=== PATIENT | female | born 1955 | race Caucasian/White ===

== ENCOUNTER → 2017-03-22 | Outpatient (CLI) | payer OTHER ==
--- NOTE | 2017-03-22 21:22 | Diagnostic Imaging Report ---
EXAMINATION: Supine view of the abdomen. INDICATION: Right kidney stone. FINDINGS: Right flank calcification measuring 4 mm is seen without change from 02/28/2016. No definitive other urinary tract stone is identified. IMPRESSION: 4 mm right flank calcification is probably a kidney stone without change from the previous exam. Dictated by: Dictated on workstation # [id number]
== END ==
LOC: RAD 11:30
PROVIDERS: ATTEND Urology
DX: N20.0 Calculus of kidney (principal)
CPT/HCPCS: 74000

== ENCOUNTER → 2018-01-14 | Outpatient (CLI) | payer OTHER ==
--- NOTE | 2018-01-17 18:00 | Diagnostic Imaging Report ---
INDICATION: Screening. The current study was also evaluated with a Computer Aided Detection (CAD) system. 3D tomosynthesis was also performed and reviewed. COMPARISON: Comparison made with prior examinations from 11/08/2015 back through 02/16/2011. FINDINGS: The fibroglandular tissue is heterogeneously dense bilaterally. There is a surgical clip in the right breast. There are a few benign-type calcifications. There is no new dominant mass or spiculated lesion. Skin, nipples, and axillae are unremarkable. IMPRESSION: Benign. ACR BI-RADS Category 2: Benign findings. Result letter will be mailed to the patient. Note: At least 10% of breast cancer is not imaged by mammography. Dictated by: Dictated on workstation # [id number]
== END ==
LOC: RAD 09:18
PROVIDERS: ATTEND Obstetrics & Gynecology
DX: Z12.31 Encounter for screening mammogram for malignant neoplasm of breast (principal)
CPT/HCPCS: 77067

== ENCOUNTER → 2018-03-14 | Outpatient (CLI) | payer OTHER ==
--- NOTE | 2018-03-14 15:54 | Diagnostic Imaging Report ---
INDICATION: Nephrolithiasis. KUB 3:48 PM. FINDINGS: There is a 3 mm calculus projecting over the inferior pole of the right kidney. There is cartilaginous calcification projecting over the left kidney from the ribs. Bowel gas pattern is normal. IMPRESSION: Small calculus inferior pole right kidney. This is unchanged from prior study done on 03/22/2017. Dictated by: Dictated on workstation # [id number]
== END ==
LOC: RAD 15:12
PROVIDERS: ATTEND Urology
DX: N20.0 Calculus of kidney (principal)
CPT/HCPCS: 74018

== ENCOUNTER 2019-01-17 08:45 | Outpatient (CLI) | payer OTHER ==
[~2019-01-17] VITALS: Ht 157.5 cm; Wt 46.8 kg
[2019-01-17] MEDS ORDERED: CHOL500044 PO (09:22)
[2019-01-17] MEDS ORDERED: FERR240T15 PO (09:22)
[2019-01-17] MEDS ORDERED: ESTR10TA9 VG (09:22)
[2019-01-17] MEDS ORDERED: MV-M1TAB57 PO (09:22)
[2019-01-17] MEDS ORDERED: CYCL10TA9 PO (09:22)
[2019-01-17] MEDS ORDERED: ASPI-789 PO (09:22)
[2019-01-17] MEDS ORDERED: AMIT25TA9 PO (09:22)
[2019-01-17] MEDS ORDERED: GLUC100016 PO (09:22)
[2019-01-17] MEDS ORDERED: MELO15TA39 PO (09:22)
[2019-01-20] MEDS ORDERED: OXYC-529 PO (14:31)
[2019-01-20] MEDS ORDERED: ACET-2267 PO (14:31)
== END 2019-01-17 09:25 | disposition home or self-care (01) ==
LOC: PREOP 08:45
PROVIDERS: ATTEND Obstetrics & Gynecology
DX: Z01.818 Encounter for other preprocedural examination (principal)

== ENCOUNTER 2019-01-20 11:25 | Day surgery (SDC) | payer OTHER ==
[2019-01-20] VITALS (11 sets, daily range): BP systolic 32–151; BP diastolic 57–82
[~2019-01-20] VITALS: Ht 157.5 cm; Wt 46.8 kg
[~2019-01-20 11:25] MED LIST: AMIT25TA9 PO; ASPI-789 PO; CHOL500044 PO; CYCL10TA9 PO; ESTR10TA9 VG; FERR240T15 PO; GLUC100016 PO; MELO15TA39 PO; MV-M1TAB57 PO
[2019-01-20] MEDS ORDERED: LACTATED RINGERS 1,000 ML IV PRN (11:34)
[2019-01-20] MEDS ORDERED: CATHETER FLUSH 10 ML SYR IV PRN (11:45)
[2019-01-20] MEDS ORDERED: metroNIDAZOLE 500MG/100ML IVPB 100 ML IV ONE (11:45)
[2019-01-20] MEDS ORDERED: ceFAZolin INJECTION 1,000 MG in WATER (STERILE) FOR INJECTION 10 ML IV ONE (11:45)
[2019-01-20] MEDS ORDERED: LIDOCAINE PF 2% 5 ML (XYLOCAINE) VIAL ONE (12:37)
[2019-01-20] MEDS ORDERED: DEXAMETHASONE 10 MG/ML (DECADRON) 1 ML VIAL ONE (12:37)
[2019-01-20] MEDS ORDERED: proPOfol 200 MG/20 ML (DIPRIVAN) VIAL IV ONE (12:37)
[2019-01-20] MEDS ORDERED: ONDANSETRON 4 MG/2 ML (SDV) Z0FRAN ONE (12:37)
[2019-01-20] MEDS ORDERED: fentaNYL INJECTION 100 MCG/2 ML AMP ONE (12:38)
[2019-01-20] MEDS ORDERED: MIDAZOLAM 2 MG/2 ML (VERSED) VIAL ONE (12:38)
--- NOTE | 2019-01-20 13:22 | Progress Note-Pre Operative ---
Pre-Operative Progress Note H&P Reviewed The H&P was reviewed, patient examined and no changes noted. Date Seen by Provider: Jan 20, 2019 Time Seen by Provider: 13:00 Date H&P Reviewed: Jan 20, 2019 Time H&P Reviewed: 12:45 Pre-Operative Diagnosis: postmenopausal bleeding, hematometra, cervical stenosis EMANUEL RODRIGUEZ DO Jan 20, 2019 13:22
[2019-01-20] MEDS ORDERED: KETOROLAC 30 MG/ML VIAL ONE (13:37)
[2019-01-20] MEDS ORDERED: SEVOFLURANE (ULTANE) 15 ML INHAL SOLN ONE ×2 (13:37→14:10)
[2019-01-20] MEDS ORDERED: BUPIVACAINE 0.5% 30 ML (SENSORCAINE) VIAL ONE (13:38)
[2019-01-20] MEDS ORDERED: morphine INJ 10 MG/ML 1ML (SYR OR VIAL) IVP ONE (14:15)
[2019-01-20] MEDS ORDERED: KETOROLAC 15 MG/ML VIAL IVP ONE (14:15)
[2019-01-20] MEDS ORDERED: MEPERIDINE (DEMEROL) INJ 50 MG/ML IVP ONE (14:15)
[2019-01-20] MEDS ORDERED: ONDANSETRON 4 MG/2 ML (SDV) Z0FRAN IVP PRN (14:15)
--- NOTE | 2019-01-20 14:28 | Operative Report ---
Operative Report Date of Procedure/Surgery Jan 20, 2019 Surgeon (s) EMANUEL RODRIGUEZ DO Gunner'S Mate G (s): NA Post-Operative Diagnosis Atrophic endometrium, cervical stenosis postmenopausal bleeding with hematometria Procedure Performed Hysteroscopy, dilation and curettage Description of Procedure Anesthesia Type: General Estimated blood loss (mL): minimal Specimen(s) collected/removed endometrial curettings Description of the Procedure With informed consent, the patient was taken to the operating room where general anesthetic was found to be adequate. Incidentally, she states she had stopped bleeding from the procedure done in the office 2+ weeks ago. She was prepped and draped in the usual sterile fashion in the dorsal lithotomy position. She has a small vaginal introitus and a normal size I valve speculum was placed. This was determined to be too large to see the small cervix I was able to obtain a small rectal speculum and this allowed me to adequately visualize the cervix without compromising visualization. I placed this and then grasped the cervix with a tenaculum. The cervix was noted to be stopped stenotic and I could not place a dilator. Instead I took an 11 blade and made a stab through the cervical os externally and there was some cervical mucus returned insuring that the cervical os was entered. At this point I attempted to place a Dealno dilator and was not able to pass this through the internal os. I then gently passed the 11 blade through the os. At this point I took a small lacrimal dilator and was able to pass this through the internal cervical os. I then placed the slightly larger diameter lacrimal dilators. I then was able to hydrodilate with the hysteroscope. Gently passing this through the external and then the internal os. There were some possible cribriform type adhesions in the endometrium noted. But that's tissue was very atrophic in appearance. There was no obvious mass noted. I then removed the hysteroscope and did a gentle curet with the 00 curette. I sent this tissue for pathology. I followed up with a hysteroscope and revealed no perforation and no abnormality except for the atrophic endometrium. At this point the tenaculum was removed from the cervix and the instruments were removed from the vagina. The patient was awakened and taken to the recovery room in a stable condition. Sponge, instrument and laparotomy sponges were correct 2. She was given Ancef preoperatively for surgical prophylaxis and 15 mg of Toradol postoperative pain. Findings of the Procedure stenotic cervix atrophic endometrium Allergies and Home Medications Allergies Coded Allergies: No Known Drug Allergies (Unverified , 01/17/19) Home Medications Amitriptyline HCl 25 Mg Tablet, 6.25 MG PO HS, (Reported) take 1/4 of 25mg tab Aspirin/Acetaminophen/Caffeine 1 Each Tablet, 1 EACH PO DAILY, (Reported) Cholecalciferol (Vitamin D3) 5,000 Unit Tablet, 5,000 UNIT PO HS, (Reported) Cyclobenzaprine HCl 10 Mg Tablet, 5 MG PO HS, (Reported) take 1/2 of 10mg tab Estradiol 10 Mcg Tablet, 10 MCG VG MoWeFr, (Reported) Ferrous Gluconate 240 Mg Tablet, 240 MG PO DAILY, (Reported) Glucosamine Sulfate 2Kcl 1,000 Mg Tablet, 1,000 MG PO DAILY, (Reported) Meloxicam 15 Mg Tablet, 7.5 MG PO HS, (Reported) take 1/2 of 15mg tab Mv-Mn/Folic Acid/Calcium/Vit K 1 Each Tablet, 1 EACH PO DAILY, (Reported) Patient Home Medication List Home Medication List Reviewed: Yes EMANUEL RODRIGUEZ DO Jan 20, 2019 14:28
[2019-01-20] MEDS ORDERED: ACET-2267 PO (14:31)
[2019-01-20] MEDS ORDERED: OXYC-529 PO (14:31)
--- NOTE | 2019-01-20 14:33 | Discharge Inst-Surgical ---
Discharge Inst-Surgical Reconcile Patient Problems Problems Reviewed?: Yes Depart Medication/Instructions New, Converted or Re-Newed RX: Other Patient Instructions expect mild, light bleeding, spotting for up to 7 days and then an increase in discharge/bleeding at about 2-4 weeks post op Call if fever, foul discharge, excessive bleeding (more than 1 pad per hour) Final Diagnosis: hematometria, postmenopausal bleeding, atrophic en Consults/Follow Up Goal/Follow Up Appt.: follow up in 1-2 weeks Activity Activity as Tolerated: Yes Driving Instructions: No Driving for 24 Hours No Driving When on Pain Meds: Yes Incentive Spirometry: Every 2 Hours While Awake Avoid ALL Tobacco Products: Smoking of Any Kind Diet Discharge Diet: No Restrictions Symptoms to Report to Physicia: Bleeding Excessive, Pain Increased, Fever Over 101 Degrees F, Vaginal Bleeding Increase, Cramps in Feet or Legs Skin/Wound Care Restrictions: No Douching, No [place] (2 weeks), No Tampons EMANUEL RODRIGUEZ DO Jan 20, 2019 14:33
--- NOTE | 2019-01-20 14:35 | Operative Report ---
Operative Report Date of Procedure/Surgery Jan 20, 2019 Surgeon (s) EMANUEL RODRIGUEZ DO Polymerization Oven Tender (s): NA Post-Operative Diagnosis Atrophic endometrium, cervical stenosis postmenopausal bleeding with hematometria Procedure Performed Hysteroscopy, dilation and curettage Description of Procedure Anesthesia Type: General Estimated blood loss (mL): minimal Specimen(s) collected/removed endometrial curettings Description of the Procedure With informed consent, the patient was taken to the operating room where general anesthetic was found to be adequate. Incidentally, she states she had stopped bleeding from the procedure done in the office 2+ weeks ago. She was prepped and draped in the usual sterile fashion in the dorsal lithotomy position. She has a small vaginal introitus and a normal size I valve speculum was placed. This was determined to be too large to see the small cervix I was able to obtain a small rectal speculum and this allowed me to adequately visualize the cervix without compromising visualization. I placed this and then grasped the cervix with a tenaculum. The cervix was noted to be stopped stenotic and I could not place a dilator. Instead I took an 11 blade and made a stab through the cervical os externally and there was some cervical mucus returned insuring that the cervical os was entered. At this point I attempted to place a Delano dilator and was not able to pass this through the internal os. I then gently passed the 11 blade through the os. At this point I took a small lacrimal dilator and was able to pass this through the internal cervical os. I then placed the slightly larger diameter lacrimal dilators. I then was able to hydrodilate with the hysteroscope. Gently passing this through the external and then the internal os. There were some possible cribriform type adhesions in the endometrium noted. But that's tissue was very atrophic in appearance. There was no obvious mass noted. I then removed the hysteroscope and did a gentle curet with the 00 curette. I sent this tissue for pathology. I followed up with a hysteroscope and revealed no perforation and no abnormality except for the atrophic endometrium. At this point the tenaculum was removed from the cervix and the instruments were removed from the vagina. The patient was awakened and taken to the recovery room in a stable condition. Sponge, instrument and laparotomy sponges were correct 2. She was given Ancef preoperatively for surgical prophylaxis and 15 mg of Toradol postoperative pain. Findings of the Procedure atrophic endometrium cervical stenosis Allergies and Home Medications Allergies Coded Allergies: No Known Drug Allergies (Unverified , 01/17/19) Home Medications Acetaminophen 500 Mg Tablet, 1,000 MG PO TID Prescribed by: EMANUEL RODRIGUEZ on 01/20/19 1431 Amitriptyline HCl 25 Mg Tablet, 6.25 MG PO HS, (Reported) take 1/4 of 25mg tab Aspirin/Acetaminophen/Caffeine 1 Each Tablet, 1 EACH PO DAILY, (Reported) Cholecalciferol (Vitamin D3) 5,000 Unit Tablet, 5,000 UNIT PO HS, (Reported) Cyclobenzaprine HCl 10 Mg Tablet, 5 MG PO HS, (Reported) take 1/2 of 10mg tab Estradiol 10 Mcg Tablet, 10 MCG VG MoWeFr, (Reported) Ferrous Gluconate 240 Mg Tablet, 240 MG PO DAILY, (Reported) Glucosamine Sulfate 2Kcl 1,000 Mg Tablet, 1,000 MG PO DAILY, (Reported) Meloxicam 15 Mg Tablet, 7.5 MG PO HS, (Reported) take 1/2 of 15mg tab Mv-Mn/Folic Acid/Calcium/Vit K 1 Each Tablet, 1 EACH PO DAILY, (Reported) Oxycodone HCl 5 Mg Tablet, 5 MG PO Q6H Prescribed by: EMANUEL RODRIGUEZ on 01/20/19 1431 Patient Home Medication List Home Medication List Reviewed: Yes EMANUEL RODRIGUEZ DO Jan 20, 2019 14:35
--- NOTE | 2019-01-21 10:10 | Anesthesia-General Post-Op ---
General Patient Condition Mental Status/LOC: Same as Preop Cardiovascular: Satisfactory Nausea/Vomiting: Absent Respiratory: Satisfactory Pain: Controlled Complications: Absent Post Op Complications Complications None Follow Up Care/Instructions Patient Instructions None needed. Anesthesia/Patient Condition Patient Condition Patient is doing well, no complaints, stable vital signs, no apparent adverse anesthesia problems. No complications reported per nursing. [place] [facility] [place] Yes PETR KENNY CRNA Jan 21, 2019 10:10
== END 2019-01-20 16:07 | disposition home or self-care (01) ==
LOC: SDC 11:25
PROVIDERS: ATTEND Obstetrics & Gynecology
DX: N95.0 Postmenopausal bleeding (principal); N88.2 Stricture and stenosis of cervix uteri; Z79.82 Long term (current) use of aspirin; Z79.899 Other long term (current) drug therapy; Z79.891 Long term (current) use of opiate analgesic; Z98.51 Tubal ligation status; Z86.73 Personal history of transient ischemic attack (TIA), and cerebral infarction without residual deficits; Z82.49 Family history of ischemic heart disease and other diseases of the circulatory system; Z83.3 Family history of diabetes mellitus
CPT/HCPCS: 87081; 88305; 94664

== ENCOUNTER → 2019-04-06 | Outpatient (CLI) | payer OTHER ==
[~2019-04-06] MED LIST changes: +ACET-2267 PO; +OXYC-529 PO
--- NOTE | 2019-04-06 09:17 | Diagnostic Imaging Report ---
EXAMINATION: Supine abdomen at 9:03 a.m. INDICATION: Right nephrolithiasis. FINDINGS: The prior exam of 03/14/2018 noted a 2.8 mm calcific density overlying the midportion of the right kidney. That finding is again evident and essentially no different. There is no evidence for nephrolithiasis on the left but the left kidney is obscured by bowel gas and fecal material. There are a few small phleboliths low in the pelvis on the right. There is no new calculus in the pelvis to suggest a ureteral stone. There is some gas in both the large and small bowel in a nonspecific fashion. There is also a moderate amount of gas within the stomach. There is no evidence for a bowel obstruction. There is no mass, organomegaly, or pathological calcification evident. The osseous structures are intact. IMPRESSION: The small calcification overlying the right kidney seen previously is again evident and no different. There is no other evidence for nephrolithiasis or urolithiasis. Dictated by: Dictated on workstation # [id number]
== END ==
LOC: RAD 08:44
PROVIDERS: ATTEND Urology
DX: N20.0 Calculus of kidney (principal)
CPT/HCPCS: 74018

== ENCOUNTER → 2020-10-15 | Outpatient (CLI) | payer MEDICARE ==
[~2020-10-15] MED LIST changes: +OXC5T PO; -OXYC-529 PO
--- NOTE | 2020-10-15 09:14 | Diagnostic Imaging Report ---
INDICATION: Osteopenia COMPARISON: DEXA 12/16/2009 FINDINGS: AP Spine L1-L4: [BMD (g/cm2): 1.052] [T-Score: -1.2] [Z-Score: 0.6] [BMD Previous: 1.075] [BMD % Change: -2.1] LT Hip Neck: [BMD (g/cm2): 0.745] [T-Score: -2.1] [Z-Score: -0.4] LT Hip Total: [BMD (g/cm2):0.760] [T-Score:-2.0] [Z-Score: -0.5] [BMD Previous: 0.894] [BMD % Change: -15.0] RT Hip Neck: [BMD (g/cm2):0.789] [T-Score:-1.8] [Z-Score:-0.1] RT Hip Total: [BMD (g/cm2):0.785] [T-score:-1.8] [Z-Score:-0.3] [BMD Previous:0.898] [BMD % Change:-12.6] World Health Organization criteria for BMD interpretation classify patients as Normal (T-score at or above -1.0), Osteopenic (T-score between -1.0 and -2.5) or Osteoporotic (T-score at or below -2.5). LIMITATIONS AND MODIFICATION: None. FRACTURE RISK (FRAX SCORE): The ten year probability of (%): Major Osteoporotic Fracture: [11.6] Hip Fracture: [2.1] IMPRESSION: 1. Osteopenia (Low bone mass). 2. Bone mineral density has decreased within the bilateral hips. 3. See below National Osteoporosis Foundation guidelines on when to potentially initiate pharmacologic therapy. Based on the National Osteoporosis Foundation Guidelines, pharmacologic treatment should be initiated in any of the following, unless clinical conditions suggest otherwise: * Any patient with prior fragility fracture of the hip or vertebrae. A spine fracture indicates 5X risk for subsequent spine fracture and 2X risk for subsequent hip fracture. * Osteoporosis (T-score <-2.5). * Postmenopausal women and men age 50 and older with low bone mass/osteopenia (T-score between -1.0 and -2.5) by DXA and 10-year major osteoporotic fracture greater than 20% or a 10-year probability of hip fracture greater than 3%. These fracture risks are supplied above in the FRAX score, if applicable. * Clinician judgement and/or patient preferences may indicate treatment for people with 10-year fracture probabilities above or below these levels. Dictated by: Dictated on workstation # [id number]
--- NOTE | 2020-10-15 12:55 | Diagnostic Imaging Report ---
INDICATION: Routine screening. COMPARISON: 01/14/2018 and 11/08/2015. TECHNIQUE: 2D and 3D bilateral screening mammography was performed with CAD. FINDINGS: Both breasts are heterogeneously dense, limiting the sensitivity of mammography. There are scattered benign calcifications. No mass or malignant appearing microcalcifications are seen. The axillae are unremarkable. IMPRESSION: No mammographic features suspicious for malignancy are identified. ACR BI-RADS Category 2: Benign findings. Result letter will be mailed to the patient. Note: At least 10% of breast cancer is not imaged by mammography. Dictated by: Dictated on workstation # [id number]
== END ==
LOC: RAD 08:30
PROVIDERS: ATTEND Obstetrics & Gynecology
DX: Z12.31 Encounter for screening mammogram for malignant neoplasm of breast (principal); M85.80 Other specified disorders of bone density and structure, unspecified site; R79.89 Other specified abnormal findings of blood chemistry
CPT/HCPCS: 77063; 77067; 77080

== ENCOUNTER → 2021-11-20 | Outpatient (CLI) | payer MEDICARE ==
[~2021-11-20] MED LIST changes: -ASPI-789 PO; +ASPI1TAB23 PO; +CYCL10TA25 PO; -CYCL10TA9 PO
--- NOTE | 2021-11-20 17:20 | Diagnostic Imaging Report ---
3-D bilateral screening mammogram with CAD. This study was compared to prior exams of 10/15/2020, 01/14/2018 and 11/08/2015. At this time there are no current complaints. The current study was also evaluated with a Computer Aided Detection (CAD) system. FINDINGS: The fibroglandular tissue in both breasts is dense. This does limit the sensitivity of this exam. Overall, there does not appear to have been any significant change when compared to the prior study. No primary or secondary sign of malignancy is noted. Stereotactic clip in the right breast seen previously is again evident and no different., IMPRESSION: There is no radiographic evidence for malignancy. ACR BI-RADS Category 1: Negative. Result letter will be mailed to the patient. Note: At least 10% of breast cancer is not imaged by mammography. Dictated by: Dictated on workstation # [id number]
== END ==
LOC: RAD 07:31
PROVIDERS: ATTEND Surgery
DX: Z12.31 Encounter for screening mammogram for malignant neoplasm of breast (principal)
CPT/HCPCS: 77063; 77067

== ENCOUNTER → 2022-11-17 | Outpatient (CLI) | payer MEDICARE ==
--- NOTE | 2022-11-17 14:05 | Diagnostic Imaging Report ---
3-D bilateral screening mammogram with CAD. The current study was also evaluated with a Computer Aided Detection (CAD) system. This study was compared to the prior exams of 11/20/2021, 10/15/2020 and 01/14/2018. At this time there are no current complaints. The current study was also evaluated with a Computer Aided Detection (CAD) system. FINDINGS: The fibroglandular tissue in both breasts is heterogeneously dense. This does limit the sensitivity of this exam. Overall, there does not appear to have been any significant change when compared to the prior study. No primary or secondary sign of malignancy is noted. Stereotactic clip in the right breast seen previously is again evident. IMPRESSION: There is no radiographic evidence for malignancy. ACR BI-RADS Category 1: Negative. Result letter will be mailed to the patient. Note: At least 10% of breast cancer is not imaged by mammography. Dictated by: Dictated on workstation # [id number]
== END ==
LOC: RAD 07:46
PROVIDERS: ATTEND Internal Medicine
DX: Z12.31 Encounter for screening mammogram for malignant neoplasm of breast (principal)
CPT/HCPCS: 77063; 77067

== ENCOUNTER 2023-01-19 08:25 | Outpatient (RCR) | payer MEDICARE | END 2023-01-23 | disposition home or self-care (01) | PROVIDERS: ATTEND Orthopaedic Surgery | DX: G56.01 Carpal tunnel syndrome, right upper limb (principal) ==

== ENCOUNTER 2023-02-17 08:05 | Outpatient (RCR) | payer MEDICARE | END 2023-02-17 14:40 | disposition home or self-care (01) | PROVIDERS: ATTEND Orthopaedic Surgery | DX: G56.01 Carpal tunnel syndrome, right upper limb (principal); R53.1 Weakness ==